=== PATIENT | male | born 1930 | race Caucasian/White ===

== ENCOUNTER 2016-12-09 08:32 | Outpatient (CLI) | payer MEDICARE | END 2016-12-09 08:33 | disposition home or self-care (01) | DX: R06.02 Shortness of breath (principal) | CPT/HCPCS: A0425; A0427 ==

== ENCOUNTER 2016-12-09 08:54 | Inpatient (IN) | payer MEDICARE ==
[2016-12-09] MEDS ORDERED: IPRATROPIUM/ALBUTEROL 3 ML NEB INH STA (09:27)
[2016-12-09] MEDS ORDERED: cefTRIAXone 1 GM in SODIUM CHLORIDE 0.9% MINIBAG 100 ML IV STA (10:46)
[2016-12-09] MEDS ORDERED: AZITHROMYCIN INJ 500 MG in SODIUM CHLORIDE 0.9% 250 ML IV STA (10:47)
[2016-12-09] MEDS ORDERED: ALBUTEROL NEB 2.5 MG/3 ML INH STA (10:47)
[2016-12-09] MEDS ORDERED: DEXAMETHASONE 10 MG/ML VIAL IVP STA (10:48)
[2016-12-09] MEDS ORDERED: cefTRIAXone 1 GM VIAL ONE (10:53)
[2016-12-09] MEDS ORDERED: DEXAMETHASONE 10 MG/ML VIAL ONE (10:53)
[2016-12-09] MEDS ORDERED: ACETAMINOPHEN 325 MG TABLET PO PRN (11:11)
[2016-12-09] MEDS ORDERED: SODIUM CHLORIDE FLUSH 0.9% 10 ML SYRINGE IVP PRN (11:11)
[2016-12-09] MEDS ORDERED: HYDROcod/ACETAM 5/325 MG TABLET PO PRN (11:11)
[2016-12-09] MEDS ORDERED: ONDANSETRON 4 MG/2 ML VIAL IVP PRN (11:11)
[2016-12-09] MEDS ORDERED: ALBUTEROL NEB 2.5 MG/3 ML INH ONE (11:12)
[2016-12-09] MEDS ORDERED: ENOXAPARIN 40 MG/0.4 ML SYRINGE SUBQ SCH (12:00)
[2016-12-09] MEDS: SODIUM CHLORIDE 0.9% 1,000 ML IV SCH (12:31)
[2016-12-09] MEDS: SODIUM CHLORIDE FLUSH 0.9% 10 ML SYRINGE IVP SCH ×2 (12:32→22:14)
[2016-12-09] MEDS ORDERED: AMIODARONE 200 MG TABLET PO SCH (13:00)
[2016-12-09] MEDS ORDERED: cefTRIAXone 1 GM in SODIUM CHLORIDE 0.9% MINIBAG 100 ML IV SCH (13:00)
[2016-12-09] MEDS: SACCHAROMYCES BOULARDII 250 MG CAPSULE PO SCH (19:09)
[2016-12-09] MEDS: MIRTAZAPINE 15 MG TABLET PO SCH (21:40)
[2016-12-09] MEDS: APIXABAN 2.5 MG TABLET PO SCH (21:42)
[2016-12-09] MEDS: TEMAZEPAM 7.5 MG CAPSULE PO PRN (23:34)
[2016-12-09] MEDS: TAMSULOSIN 0.4 MG CAPSULE PO SCH (23:34)
[2016-12-10] MEDS: SODIUM CHLORIDE FLUSH 0.9% 10 ML SYRINGE IVP SCH ×3 (05:12→21:10)
[2016-12-10] MEDS: SODIUM CHLORIDE 0.9% 1,000 ML IV SCH (05:56)
[2016-12-10] MEDS: ALBUTEROL NEB 2.5 MG/3 ML INH PRN (08:13)
[2016-12-10] MEDS: APIXABAN 2.5 MG TABLET PO SCH ×2 (08:54→21:10)
[2016-12-10] MEDS: SACCHAROMYCES BOULARDII 250 MG CAPSULE PO SCH ×2 (08:54→16:31)
[2016-12-10] MEDS: cefTRIAXone 2 GM in SODIUM CHLORIDE 0.9% MINIBAG 100 ML IV SCH (08:55)
[2016-12-10] MEDS: MEGESTROL 400 MG/10 ML UDC PO SCH (08:55)
[2016-12-10] MEDS: METOPROLOL SUCCINATE 25 MG TABLET PO SCH (08:56)
[2016-12-10] MEDS: POLYETHYLENE GLYCOL 3350 17 GM PACKET PO SCH (08:56)
[2016-12-10] MEDS ORDERED: TAMSULOSIN 0.4 MG CAPSULE PO SCH ×2 (09:00→22:30)
[2016-12-10] MEDS: TAMSULOSIN 0.4 MG CAPSULE PO SCH (09:01)
[2016-12-10] MEDS: AZITHROMYCIN INJ 500 MG in SODIUM CHLORIDE 0.9% 250 ML IV SCH (13:10)
[2016-12-10] MEDS: methylPREDNISolone SUCCINATE 40 MG/ML VIAL IVP SCH ×2 (14:41→21:10)
[2016-12-10] MEDS: IPRATROPIUM/ALBUTEROL 3 ML NEB INH SCH ×2 (15:18→18:16)
[2016-12-10] MEDS: MIRTAZAPINE 15 MG TABLET PO SCH (21:10)
[2016-12-10] MEDS: TEMAZEPAM 7.5 MG CAPSULE PO PRN (21:10)
[2016-12-11] MEDS: methylPREDNISolone SUCCINATE 40 MG/ML VIAL IVP SCH ×3 (05:30→21:06)
[2016-12-11] MEDS: SODIUM CHLORIDE 0.9% 1,000 ML IV SCH (05:40)
[2016-12-11] MEDS: SODIUM CHLORIDE FLUSH 0.9% 10 ML SYRINGE IVP SCH ×3 (05:41→21:06)
[2016-12-11] MEDS: IPRATROPIUM/ALBUTEROL 3 ML NEB INH SCH ×2 (07:39→11:08)
[2016-12-11] MEDS: TAMSULOSIN 0.4 MG CAPSULE PO SCH (09:00)
[2016-12-11] MEDS: SACCHAROMYCES BOULARDII 250 MG CAPSULE PO SCH ×2 (09:00→17:30)
[2016-12-11] MEDS: cefTRIAXone 2 GM in SODIUM CHLORIDE 0.9% MINIBAG 100 ML IV SCH (09:01)
[2016-12-11] MEDS: APIXABAN 2.5 MG TABLET PO SCH ×2 (09:01→21:05)
[2016-12-11] MEDS: METOPROLOL SUCCINATE 25 MG TABLET PO SCH (09:01)
[2016-12-11] MEDS: MEGESTROL 400 MG/10 ML UDC PO SCH (09:01)
[2016-12-11] MEDS: POLYETHYLENE GLYCOL 3350 17 GM PACKET PO SCH (09:12)
[2016-12-11] MEDS: AZITHROMYCIN INJ 500 MG in SODIUM CHLORIDE 0.9% 250 ML IV SCH (11:52)
[2016-12-11] MEDS: ALBUTEROL NEB 2.5 MG/3 ML INH PRN (15:41)
[2016-12-11] MEDS: IPRATROPIUM/ALBUTEROL 3 ML NEB INH PRN (20:55)
[2016-12-11] MEDS: MIRTAZAPINE 15 MG TABLET PO SCH (21:05)
[2016-12-11] MEDS: TEMAZEPAM 7.5 MG CAPSULE PO PRN (21:05)
[2016-12-12] MEDS: SODIUM CHLORIDE 0.9% 1,000 ML IV SCH (03:31)
[2016-12-12] MEDS: methylPREDNISolone SUCCINATE 40 MG/ML VIAL IVP SCH ×2 (06:08→06:38)
[2016-12-12] MEDS: SODIUM CHLORIDE FLUSH 0.9% 10 ML SYRINGE IVP SCH (06:09)
[2016-12-12] MEDS: IPRATROPIUM/ALBUTEROL 3 ML NEB INH PRN ×2 (07:15→11:00)
[2016-12-12] MEDS: SACCHAROMYCES BOULARDII 250 MG CAPSULE PO SCH (08:43)
[2016-12-12] MEDS: MEGESTROL 400 MG/10 ML UDC PO SCH (08:44)
[2016-12-12] MEDS: APIXABAN 2.5 MG TABLET PO SCH (08:44)
[2016-12-12] MEDS: TAMSULOSIN 0.4 MG CAPSULE PO SCH (08:45)
[2016-12-12] MEDS: POLYETHYLENE GLYCOL 3350 17 GM PACKET PO SCH (08:45)
[2016-12-12] MEDS: METOPROLOL SUCCINATE 25 MG TABLET PO SCH (08:45)
[2016-12-12] MEDS: cefTRIAXone 2 GM in SODIUM CHLORIDE 0.9% MINIBAG 100 ML IV SCH (08:51)
== END 2016-12-12 12:10 | disposition home or self-care (01) | DRG 190 ==
DX: J44.0 Chronic obstructive pulmonary disease with (acute) lower respiratory infection (principal); R09.02 Hypoxemia; J18.1 Lobar pneumonia, unspecified organism; J18.9 Pneumonia, unspecified organism; J96.11 Chronic respiratory failure with hypoxia; Z79.51 Long term (current) use of inhaled steroids; Z79.899 Other long term (current) drug therapy; J91.8 Pleural effusion in other conditions classified elsewhere; N13.8 Other obstructive and reflux uropathy; E46 Unspecified protein-calorie malnutrition; R64 Cachexia; E87.1 Hypo-osmolality and hyponatremia; J44.1 Chronic obstructive pulmonary disease with (acute) exacerbation; I48.91 Unspecified atrial fibrillation; I10 Essential (primary) hypertension; Z68.20 Body mass index [BMI] 20.0-20.9, adult; E87.5 Hyperkalemia; N40.1 Benign prostatic hyperplasia with lower urinary tract symptoms; Z99.81 Dependence on supplemental oxygen; Z90.2 Acquired absence of lung [part of]; Z87.891 Personal history of nicotine dependence; Z86.11 Personal history of tuberculosis; Z66 Do not resuscitate

== ENCOUNTER 2016-12-21 07:56 | Outpatient (CLI) | payer MEDICARE | END 2016-12-21 07:57 | disposition EMS.NT | LOC: EMS 07:56 | PROVIDERS: ATTEND Surgery ==